=== PATIENT | female | born 1960 | race Caucasian/White ===

== ENCOUNTER → 2017-11-01 | Outpatient (CLI) | payer OTHER, MEDICAID | END | disposition home or self-care (01) | LOC: CVU 06:42 | PROVIDERS: ATTEND Internal Medicine Cardiovascular Disease | DX: I35.8 Other nonrheumatic aortic valve disorders (principal); R59.0 Localized enlarged lymph nodes; R60.0 Localized edema; I10 Essential (primary) hypertension; I49.3 Ventricular premature depolarization; I49.9 Cardiac arrhythmia, unspecified | CPT/HCPCS: 93306; 93970 ==